=== PATIENT | male | born 1990 | race Caucasian/White ===

== ENCOUNTER 2019-03-16 21:49 | Emergency (ER) | payer OTHER ==
--- NOTE | 2019-03-16 23:12 | EDM.PDOC ---
ED HPI GENERAL MEDICAL PROBLEM - General Chief Complaint: Upper Extremity Injury/Pain Stated Complaint: POISON HARPAL Time Seen by Provider: 03/16/19 22:50 Source of Information: Reports: Patient History Limitations: Reports: No Limitations - History of Present Illness INITIAL COMMENTS - FREE TEXT/NARRATIVE: 20-year-old male who gets recurring poison harpal fairly frequently, has his first bad episode this year on his right arm and a few scattered spots on his left arm. Lesions have been present for several days and worsening despite topical calamine and Benadryl. No fevers or chills. Onset: Gradual Duration: Day(s): (4-6 days) Location: Reports: Upper Extremity, Left, Upper Extremity, Right Associated Symptoms: Reports: No Other Symptoms Right Lower Arm Pain Score (Numeric/FACES): 3 - Related Data Allergies Allergy/AdvReac Type Severity Reaction Status Date / Time No Known Allergies Allergy Verified 03/16/19 22:29 Home Meds: Home Meds NK [No Known Home Meds] 03/16/19 [History] Past Medical History Musculoskeletal History: Reports: Fracture - Past Surgical History Musculoskeletal Surgical History: Reports: Other (See Below) Other Musculoskeletal Surgeries/Procedures:: left hand surgery Social & Family History - Tobacco Use Years of Tobacco use: 12 Packs/Tins Daily: 0.2 - Caffeine Use Caffeine Use: Reports: Soda - Recreational Drug Use Recreational Drug Use: No Review of Systems - Review of Systems Review Of Systems: See Below Constitutional: Denies: Fever Respiratory: Reports: No Symptoms Cardiovascular: Reports: No Symptoms GI/Abdominal: Reports: No Symptoms Skin: Reports: Other (Inflamed and itchy lesions on both arms from exposure to poison harpal) ED EXAM, GENERAL - Physical Exam Exam: See Below Exam Limited By: No Limitations General Appearance: Alert, No Apparent Distress Respiratory/Chest: No Respiratory Distress Neurological: Alert, Oriented Skin Exam: Other (Patient has groups of small vesicles and papules on an erythematous base, including streaks of lesions especially on the right forearm and around the distal upper arm. A few smaller areas on the left arm. He also has lesions in between his fingers on the right hand. This is small amount of swelling. Some of the lesions are oozing clear material.) Course - Vital Signs Last Recorded V/S: Last Vital Signs Temp 97.4 F 03/16/19 22:31 Pulse 78 03/16/19 22:31 Resp 18 03/16/19 22:31 BP 153/111 H 03/16/19 22:31 Pulse Ox 98 03/16/19 22:31 - Re-Assessments/Exams Free Text/Narrative Re-Assessment/Exam: 03/16/19 23:11 Patient was started on 60 mg of prednisone daily for 5 consecutive days, and given triamcinolone cream to apply 3 times a day. He should keep the lesions clean while healing and recheck in 3-4 days if not improving satisfactorily. Avoid any further exposure to poison harpal. Departure - Departure Time of Disposition: 23:19 Disposition: Home, Self-Care 01 Condition: Good Clinical Impression: Contact dermatitis due to poison harpal - Discharge Information Instructions: Poison Harpal Dermatitis, [id number] Referrals: Rhys Julio MD [Primary Care Provider] - Forms: ED Department Discharge Care Plan Goals: Take 6 pills of prednisone with your first food the day for 5 consecutive days. Use topical cream 3 times a day, and continue calamine or Benadryl as needed. Consider rechecking early next week if not improving satisfactorily. Avoid any further exposure to poison harpal.
== END 2019-03-16 23:19 | disposition home or self-care (01) ==
LOC: JP.ED 21:49
DX: L23.7 Allergic contact dermatitis due to plants, except food (principal); F17.210 Nicotine dependence, cigarettes, uncomplicated
CPT/HCPCS: 99283